=== PATIENT | male | born 1990 | race Hispanic/Latino ===

== ENCOUNTER 2018-07-06 12:27 | Emergency (ER) | payer OTHER ==
[2018-07-06 12:42] VITALS: BP 146/80; PULSE 98; RESP 16; TEMP 97.9; O2SAT 98
--- NOTE | 2018-07-06 12:59 | ED PDOC ---
Lower Extremity Pain/Injury Time Seen by Provider: 07/06/18 12:42 Chief Complaint (Nursing): Lower Extremity Problem/Injury Chief Complaint (Provider): Left ankle pain History Per: Patient History/Exam Limitations: no limitations Onset/Duration Of Symptoms: Days Current Symptoms Are (Timing): Still Present Additional Complaint(s): 28 year old male presents to the ER for an evaluation of left ankle pain onset last night after a fall in the bathroom. Patient states he slipped and fell over the rug, twisting his whole leg. He also reports he has pain behind his left knee with difficulty bearing weight. Patient reports of pain and swelling. He took Advil for relief and notes in the past he has had fracture and surgeries in the past on his left ankle. Denies fever, numbness, weakness or tingling. Patient ambulated into the ER with crutches. PMD: Lev Dias - Ankle/Foot Description Of Injury: Fell, Twisted Currently Unable To: Bear Weight Past Medical History Reviewed: Historical Data, Nursing Documentation, Vital Signs Vital Signs: Last Vital Signs Temp 97.9 F 07/06/18 12:39 Pulse 98 H 07/06/18 12:39 Resp 16 07/06/18 12:39 BP 146/80 07/06/18 12:39 Pulse Ox 98 07/06/18 12:39 - Medical History PMH: No Chronic Diseases - Surgical History Other surgeries: left ankle surgery - Family History Family History: States: Unknown Family Hx - Social History Current smoker - smoking cessation education provided: No Alcohol: Social Drugs: Denies - Home Medications Home Medications: Ambulatory Orders Medication Instructions Recorded Ibuprofen [Motrin] 600 mg PO Q8 PRN #15 tab 07/06/18 - Allergies Allergies/Adverse Reactions: Allergies Allergy/AdvReac Type Severity Reaction Status Date / Time No Known Allergies Allergy Verified 07/06/18 12:39 Review of Systems ROS Statement: Except As Marked, All Systems Reviewed And Found Negative Constitutional: Negative for: Fever Musculoskeletal: Positive for: Leg Pain (left) Neurological: Negative for: Weakness, Numbness, Other (tingling ) Psych: Negative for: Suicidal ideation (homcidal ideation ) Physical Exam - Reviewed Nursing Documentation Reviewed: Yes Vital Signs Reviewed: Yes - Physical Exam Appears: Positive for: Well, Non-toxic, No Acute Distress Head Exam: Positive for: ATRAUMATIC, NORMAL INSPECTION, NORMOCEPHALIC Skin: Positive for: Normal Color, Warm, Dry. Negative for: Rash Eye Exam: Positive for: Normal appearance Extremity: Positive for: Tenderness (mild, popliteal fossa), Capillary Refill (less than 2 seconds ), Swelling (mild to left lateral malleolus ), Other (no obvious effusion or tenderness to left foot and ankle ). Negative for: Deformity (able to flex and extent left leg ) Neurologic/Psych: Positive for: Alert, Oriented (x3). Negative for: Motor/Sensory Deficits - ECG O2 Sat by Pulse Oximetry: 98 (RA) Pulse Ox Interpretation: Normal - Progress ED Course And Treament: xry of ankle:No appreciable acute fracture or ankle mortise widening. Mild soft tissue swelling. Small ankle joint effusion. Degenerative changes of the left ankle. xry of knee: no acute fx Medical Decision Making Medical Decision Making: Time: 1247 Initial Plan: --Knee 3 Views LT [RAD] --Ankle Left 3 Views [RAD] --Reevaluation Scribe Attestation: Documented by Libertad Velasco, acting as a scribe for Jackelin Layne PA-C. Provider Scribe Attestation: All medical record entries made by the Scribe were at my direction and personally dictated by me. I have reviewed the chart and agree that the record accurately reflects my personal performance of the history, physical exam, medical decision making, and the department course for this patient. I have also personally directed, reviewed, and agree with the discharge instructions and disposition. Disposition - Clinical Impression Clinical Impression: Ankle sprain and strain - Patient ED Disposition Is Patient to be Admitted: No - Disposition Referrals: [facility]iatry [facility] [Outside] Rambo Cordova MD [Staff Provider] - Disposition: Routine/Home Disposition Time: 13:20 Condition: FAIR Prescriptions: Ibuprofen [Motrin] 600 mg PO Q8 PRN #15 tab PRN Reason: Pain, Moderate (4-7) Instructions: Ankle Sprain (DC), Knee Sprain (DC)
--- NOTE | 2018-07-06 13:16 | RAD ---
Date of service: 07/06/2018 PROCEDURE: Left Ankle Radiographs. HISTORY: ankle injury COMPARISON: None FINDINGS: BONES: Three views of the left ankle were performed for left ankle pain. No fracture is seen. No ankle mortise widening is noted. Mild degenerative changes are seen in the distal tibia fibular joint space and medial ankle region. Base of the 5th metatarsal is intact. Small bone island is seen in the cuboid bone. Talar dome is normal in outline. Subtalar joint is unremarkable. Small left ankle joint effusion is seen. Minor ankle joint soft tissue swelling is noted laterally as well as some proximal left foot soft tissue swelling. JOINTS: Degenerative changes. No ankle mortise widening. SOFT TISSUES: Normal. OTHER FINDINGS: None. IMPRESSION: No appreciable acute fracture or ankle mortise widening. Mild soft tissue swelling. Small ankle joint effusion. Degenerative changes of the left ankle.
--- NOTE | 2018-07-06 13:18 | RAD ---
Date of service: 07/06/2018 PROCEDURE: Left Knee Radiographs. HISTORY: Pain. COMPARISON: None. FINDINGS: BONES: Four views of the left knee were performed. Patella emeka is seen. No fracture is seen. No lytic process is noted. No tibial plateau depression is seen. Proximal fibula is intact. JOINTS: Normal. No osteoarthritis. JOINT EFFUSION: None. OTHER FINDINGS: Patella alpha. Patella is otherwise normal location on the sunrise view. IMPRESSION: No appreciable fracture. Patella emeka which should be further correlated clinically.
== END 2018-07-06 13:27 | disposition home or self-care (01) ==
LOC: H.ER 12:27
DX: S93.402A Sprain of unspecified ligament of left ankle, initial encounter (principal); S89.92XA Unspecified injury of left lower leg, initial encounter; W19.XXXA Unspecified fall, initial encounter; Y92.002 Bathroom of unspecified non-institutional (private) residence as the place of occurrence of the external cause